=== PATIENT | male | born 1945 | race Caucasian/White ===

== ENCOUNTER 2022-06-03 09:34 | Inpatient (IN) | payer OTHER ==
[~2022-06-03] VITALS: Ht 162.6 cm; Wt 68.0 kg
[2022-06-03 09:35] VITALS: BP_SYST 188
[2022-06-03 09:58] LABS: BASOPHILS # (AUTO) 0.1 K/uL (0.0-0.2); EOSINOPHILS # (AUTO) 0.4 K/uL (0.0-0.4); EOSINOPHILS % (AUTO) 6.6 % (0.0-4.0); HEMATOCRIT 36.2 % (36-54); HEMOGLOBIN 11.9 g/dL (14.0-18.0); LYMPHOCYTES # (AUTO) 0.6 K/uL (1.0-5.5); LYMPHOCYTES % (AUTO) 10.5 % (20.5-51.5); MEAN CORPUSCULAR HEMOGLOBIN 33 pg (27-31); MEAN CORPUSCULAR HGB CONC 33 % (32-36); MEAN CORPUSCULAR VOLUME 100 fL (79.0-98.0); MONOCYTES # (AUTO) 0.4 K/uL (0.0-1.0); MONOCYTES % (AUTO) 7.3 % (1.7-9.3); NEUTROPHILS # (AUTO) 4.5 K/uL (1.8-7.7); NEUTROPHILS % (AUTO) 74.6 % (40.0-70.0); PLATELET COUNT (AUTO) 174 K/uL (130-430); RED BLOOD CELL COUNT(AUTO) 3.63 MIL/uL (4.2-6.2); RED CELL DISTRIBUTION WIDTH 13.8 % (9.0-15.0); WHITE BLOOD COUNT (AUTO) 6.1 K/uL (4.8-10.8)
[2022-06-03 10:07] LABS: ANION GAP 8 (5-15); CALCIUM 9.1 mg/dL (8.4-11.0); CHLORIDE 108 mmol/L (98-107); CREATININE 1.31 mg/dL (0.55-1.30); GLUCOSE 109 mg/dL (70-99); UREA NITROGEN, BLOOD 38 mg/dL (8-21)
[2022-06-03 10:12] LABS: ALANINE AMINOTRANSFERASE 28 U/L (12-78); ALBUMIN 4.1 g/dL (3.4-4.8); ASPARTATE AMINOTRANSFERASE 28 U/L (10-37); TOTAL BILIRUBIN 0.3 mg/dL (0.0-1.0)
[2022-06-03] MEDS ORDERED: DEXTROSE 50% JECT 50 ML DISP.SYRIN IVP ONE ×3 (10:30→18:00)
[2022-06-03] MEDS ORDERED: CALCIUM GLUCONATE 2 GM in NS 100 ML IV ONE (10:30)
[2022-06-03] MEDS ORDERED: INSULIN REGULAR, HUMAN 10 UNITS/0.1 ML, 3 ML VIAL IVP ONE ×2 (10:30→19:15)
[2022-06-03] MEDS ORDERED: INSULIN REGULAR, HUMAN 10 UNITS/0.1 ML, 3 ML VIAL ONE (11:36)
[2022-06-03] MEDS ORDERED: ONDANSETRON HCL 4 MG/2 ML VIAL IVP ONE (11:45)
[2022-06-03] MEDS ORDERED: CALCIUM CHLORIDE 1 GM/10 ML DISP.SYRIN (14 mEq Ca++/SYR) ONE (11:46)
[2022-06-03] MEDS ORDERED: ONDANSETRON HCL 4 MG/2 ML VIAL ONE (11:47)
[2022-06-03] MEDS: CALCIUM GLUCONATE 1 GM in NS 100 ML IV SCH ×4 (12:10→21:18)
[2022-06-03] MEDS ORDERED: GABA300T25 (12:14)
[2022-06-03] MEDS ORDERED: IRBE75TA29 (12:14)
[2022-06-03 13:15] LABS: ANION GAP 10 (5-15); CALCIUM 9.4 mg/dL (8.4-11.0); CHLORIDE 110 mmol/L (98-107); CREATININE 1.22 mg/dL (0.55-1.30); GLUCOSE 91 mg/dL (70-99); UREA NITROGEN, BLOOD 37 mg/dL (8-21)
[2022-06-03] MEDS ORDERED: SODIUM POLYSTYRENE SULFONATE 15 GM/60 ML UDBTL PO ONE ×2 (13:30→18:00)
[2022-06-03 15:00] VITALS: BP_SYST 181
[2022-06-03 15:21] VITALS: BP_SYST 181
[2022-06-03 16:33] LABS: ANION GAP 11 (5-15); CALCIUM 9.4 mg/dL (8.4-11.0); CHLORIDE 108 mmol/L (98-107); CREATININE 1.18 mg/dL (0.55-1.30); GLUCOSE 88 mg/dL (70-99); UREA NITROGEN, BLOOD 37 mg/dL (8-21)
[2022-06-03 17:50] VITALS: BP_SYST 158
[2022-06-03] MEDS ORDERED: INSULIN REGULAR, HUMAN 100 UNITS/ML, 3 ML VIAL SUBCUT ONE (18:00)
[2022-06-03] MEDS ORDERED: SORBITOL 70% SOLUTION, 30 ML UDBTL PO ONE (18:00)
[2022-06-03] MEDS ORDERED: CALCIUM GLUCONATE 1 GM/10 ML VIAL IVP ONE (18:00)
[2022-06-03] MEDS ORDERED: CALCIUM GLUC 1 GM/100ML-NACL 100 ML IV ONE (18:45)
[2022-06-03 20:00] VITALS: BP_SYST 157
[2022-06-03] MEDS ORDERED: CALCIUM GLUCONATE 1 GM/10 ML VIAL ONE (20:51)
[2022-06-04 00:31] VITALS: BP_SYST 156
[2022-06-04] MEDS: 0.45% NACL 1,000 ML IV SCH ×2 (05:41→17:02)
[2022-06-04 06:58] LABS: BASOPHILS # (AUTO) 0.1 K/uL (0.0-0.2); BASOPHILS % (AUTO) 0.7 % (0.0-2.0); EOSINOPHILS # (AUTO) 0.4 K/uL (0.0-0.4); EOSINOPHILS % (AUTO) 4.6 % (0.0-4.0); HEMATOCRIT 36.6 % (36-54); HEMOGLOBIN 12.2 g/dL (14.0-18.0); LYMPHOCYTES # (AUTO) 0.7 K/uL (1.0-5.5); LYMPHOCYTES % (AUTO) 8.5 % (20.5-51.5); MEAN CORPUSCULAR HEMOGLOBIN 33 pg (27-31); MEAN CORPUSCULAR HGB CONC 34 % (32-36); MEAN CORPUSCULAR VOLUME 99 fL (79.0-98.0); MONOCYTES # (AUTO) 0.5 K/uL (0.0-1.0); MONOCYTES % (AUTO) 6.5 % (1.7-9.3); NEUTROPHILS # (AUTO) 6.5 K/uL (1.8-7.7); NEUTROPHILS % (AUTO) 79.7 % (40.0-70.0); PLATELET COUNT (AUTO) 163 K/uL (130-430); RED CELL DISTRIBUTION WIDTH 13.7 % (9.0-15.0); WHITE BLOOD COUNT (AUTO) 8.1 K/uL (4.8-10.8)
[2022-06-04 07:20] LABS: ALANINE AMINOTRANSFERASE 29 U/L (12-78); ALBUMIN 3.7 g/dL (3.4-4.8); ANION GAP 9 (5-15); ASPARTATE AMINOTRANSFERASE 34 U/L (10-37); CALCIUM 9.6 mg/dL (8.4-11.0); CHLORIDE 109 mmol/L (98-107); CREATININE 1.22 mg/dL (0.55-1.30); GLUCOSE 87 mg/dL (70-99); PHOSPHORUS 4.9 mg/dL (2.7-4.5); TOTAL BILIRUBIN 0.4 mg/dL (0.0-1.0); UREA NITROGEN, BLOOD 31 mg/dL (8-21)
[2022-06-04 08:54] VITALS: BP_SYST 152
[2022-06-04] MEDS ORDERED: SODIUM POLYSTYRENE SULFONATE 15 GM/60 ML UDBTL PO ONE (10:00)
[2022-06-04] MEDS ORDERED: SODI10PO PO (10:54)
[2022-06-04] MEDS ORDERED: AMLO2.5T50 PO (10:54)
[2022-06-04 11:32] VITALS: BP_SYST 161
[2022-06-04 13:29] LABS: BASOPHILS % (AUTO) 0.6 % (0.0-2.0); EOSINOPHILS # (AUTO) 0.2 K/uL (0.0-0.4); EOSINOPHILS % (AUTO) 2.7 % (0.0-4.0); HEMATOCRIT 36.4 % (36-54); LYMPHOCYTES # (AUTO) 0.5 K/uL (1.0-5.5); LYMPHOCYTES % (AUTO) 6.3 % (20.5-51.5); MEAN CORPUSCULAR HEMOGLOBIN 33 pg (27-31); MEAN CORPUSCULAR HGB CONC 33 % (32-36); MEAN CORPUSCULAR VOLUME 99 fL (79.0-98.0); MONOCYTES # (AUTO) 0.5 K/uL (0.0-1.0); MONOCYTES % (AUTO) 5.8 % (1.7-9.3); NEUTROPHILS # (AUTO) 6.7 K/uL (1.8-7.7); NEUTROPHILS % (AUTO) 84.6 % (40.0-70.0); PLATELET COUNT (AUTO) 172 K/uL (130-430); RED BLOOD CELL COUNT(AUTO) 3.68 MIL/uL (4.2-6.2); RED CELL DISTRIBUTION WIDTH 13.8 % (9.0-15.0)
[2022-06-04 15:31] VITALS: BP_SYST 178
[2022-06-04] MEDS ORDERED: amLODIPine BESYLATE 5 MG TABLET PO ONE (16:00)
[2022-06-04] MEDS ORDERED: ONDANSETRON HCL 4 MG/2 ML VIAL IVP PRN (16:45)
[2022-06-04] MEDS ORDERED: PANTOPRAZOLE SODIUM 40 MG/VIAL (PROTONIX) IVP ONE (17:15)
[2022-06-05 01:37] VITALS: BP_SYST 159
[2022-06-05 04:04] VITALS: BP_SYST 158
[2022-06-05 05:49] LABS: BASOPHILS # (AUTO) 0.1 K/uL (0.0-0.2); BASOPHILS % (AUTO) 0.8 % (0.0-2.0); EOSINOPHILS # (AUTO) 0.3 K/uL (0.0-0.4); EOSINOPHILS % (AUTO) 4.3 % (0.0-4.0); HEMATOCRIT 33.8 % (36-54); HEMOGLOBIN 11.4 g/dL (14.0-18.0); LYMPHOCYTES # (AUTO) 0.7 K/uL (1.0-5.5); LYMPHOCYTES % (AUTO) 9.5 % (20.5-51.5); MEAN CORPUSCULAR HEMOGLOBIN 33 pg (27-31); MEAN CORPUSCULAR HGB CONC 34 % (32-36); MEAN CORPUSCULAR VOLUME 98 fL (79.0-98.0); MONOCYTES # (AUTO) 0.6 K/uL (0.0-1.0); MONOCYTES % (AUTO) 7.7 % (1.7-9.3); NEUTROPHILS # (AUTO) 5.9 K/uL (1.8-7.7); NEUTROPHILS % (AUTO) 77.7 % (40.0-70.0); PLATELET COUNT (AUTO) 161 K/uL (130-430); RED BLOOD CELL COUNT(AUTO) 3.44 MIL/uL (4.2-6.2); RED CELL DISTRIBUTION WIDTH 13.7 % (9.0-15.0); WHITE BLOOD COUNT (AUTO) 7.6 K/uL (4.8-10.8)
[2022-06-05 06:06] LABS: ANION GAP 12 (5-15); CALCIUM 8.6 mg/dL (8.4-11.0); CHLORIDE 107 mmol/L (98-107); CREATININE 1.39 mg/dL (0.55-1.30); GLUCOSE 84 mg/dL (70-99); UREA NITROGEN, BLOOD 28 mg/dL (8-21)
[2022-06-05 07:51] VITALS: BP_SYST 136
[2022-06-05] MEDS ORDERED: PANTOPRAZOLE SODIUM 40 MG/VIAL (PROTONIX) IVP SCH (09:00)
[2022-06-05] MEDS ORDERED: SODIUM ZIRCONIUM CYCLOSILICATE 10 GM POWD.PACK PO SCH (09:00)
[2022-06-05] MEDS ORDERED: amLODIPine BESYLATE 5 MG TABLET PO SCH (09:00)
[2022-06-05 11:11] VITALS: BP_SYST 136
[2022-06-05 11:34] VITALS: BP_SYST 159
[2022-06-05 18:06] LABS: HEPATITIS B SURFACE AG Negative (Negative); HEPATITIS C VIRUS AB Non Reactive (Non Reactive)
== END 2022-06-05 11:45 | disposition home health service (06) | DRG 641 ==
LOC: SED 09:34 → STU 13:54
PROVIDERS: ADMIT Specialist; ATTEND Specialist
DX: E86.0 Dehydration (principal); E87.5 Hyperkalemia; I10 Essential (primary) hypertension; T44.5X5A Adverse effect of predominantly beta-adrenoreceptor agonists, initial encounter; Z20.822 Contact with and (suspected) exposure to COVID-19; Z85.810 Personal history of malignant neoplasm of tongue; Z92.3 Personal history of irradiation; Z88.2 Allergy status to sulfonamides; Z87.891 Personal history of nicotine dependence; Y92.89 Other specified places as the place of occurrence of the external cause; Z93.1 Gastrostomy status
CPT/HCPCS: 36415; 80048; 80053; 82533; 83735; 84100; 84132; 85025; 86803; 87340; 93005; 96365; 96375; 96376; 99285; 99291; C9113; G0378; J0610; J1815; J2405